=== PATIENT | male | born 1965 ===

== ENCOUNTER 2017-02-14 07:49 | Day surgery (SDC) | payer SELFPAY ==
[2017-02-14] MEDS ORDERED: Lactated Ringer's 500 ML IV ONE (08:26)
[2017-02-14 08:50] VITALS: RESP 11
[2017-02-14] MEDS ORDERED: Midazolam 2 MG/2 ML VIAL ONE (09:53)
[2017-02-14] MEDS ORDERED: Propofol 10 mg/ml Inj (20 ML) ONE (09:53)
[2017-02-14 10:44] VITALS: PULSE 58; TEMP 97.2
[2017-02-14 10:45] VITALS: BP 106/71; O2SAT 99
== END 2017-02-14 10:41 | disposition home or self-care (01) ==
LOC: H.ENDO 07:49
PROVIDERS: ATTEND Internal Medicine Gastroenterology
DX: Z12.11 Encounter for screening for malignant neoplasm of colon (principal); K64.1 Second degree hemorrhoids
CPT/HCPCS: 45378; J2001; J2250; J2704; J7120